=== PATIENT | male | born 2000 | race African-American/Black ===

== ENCOUNTER 2021-01-21 20:28 | Emergency (ER) | payer OTHER ==
[~2021-01-21] VITALS: Ht 175.3 cm; Wt 120.5 kg
[2021-01-21 22:46] VITALS: BP 149/68
== END 2021-01-21 23:16 | disposition home or self-care (01) ==
LOC: EMS 20:32
DX: S80.811A Abrasion, right lower leg, initial encounter (principal); S50.812A Abrasion of left forearm, initial encounter; M54.50 Low back pain, unspecified; J45.909 Unspecified asthma, uncomplicated; F17.210 Nicotine dependence, cigarettes, uncomplicated; V49.9XXA Car occupant (driver) (passenger) injured in unspecified traffic accident, initial encounter; Y93.89 Activity, other specified; Y92.89 Other specified places as the place of occurrence of the external cause; Y99.8 Other external cause status
CPT/HCPCS: 72100; 99284; 73090-TC; 73590-TC; Z7502